=== PATIENT | female | born 1955 | race Two or more races ===

== ENCOUNTER 2023-10-08 08:51 | Emergency (ER) | payer OTHER, MEDICAID ==
[~2023-10-08] VITALS: Ht 162.6 cm; Wt 70.0 kg
[2023-10-08 09:03] VITALS: TEMP 98.2; O2SAT 97
[2023-10-08 10:23] VITALS: BP 166/86; PULSE 81; RESP 16
[2023-10-08] MEDS ORDERED: ACETAMINOPHEN WITH CODEINE 300/30MG TABLET PO STA (10:23)
[2023-10-08] MEDS ORDERED: TETANUS, DIPHTHERIA, PERTUSSIS VAC/PF 0.5ML (>10YR OLD) IM ONE (10:30)
[2023-10-08] MEDS ORDERED: LIDOCAINE HCL 1% 20ML VIAL (Pyxis) INJ INFIL ONE (11:30)
[2023-10-08] MEDS ORDERED: NAPR-681 MT (13:27)
== END 2023-10-08 14:40 | disposition home or self-care (01) ==
LOC: ER 08:51
DX: S01.01XA Laceration without foreign body of scalp, initial encounter (principal); R51.9 Headache, unspecified; E11.9 Type 2 diabetes mellitus without complications; I10 Essential (primary) hypertension; Z88.1 Allergy status to other antibiotic agents; W01.0XXA Fall on same level from slipping, tripping and stumbling without subsequent striking against object, initial encounter; Y93.89 Activity, other specified; Y92.89 Other specified places as the place of occurrence of the external cause; Y99.8 Other external cause status
CPT/HCPCS: 99284; 70450; 71045; 73610; 73630; 72125; 74176; J3490; 90715

== ENCOUNTER 2023-10-15 06:34 | Emergency (ER) | payer OTHER, MEDICAID ==
[~2023-10-15] VITALS: Ht 160 cm; Wt 60.0 kg
[~2023-10-15 06:34] MED LIST: NAPR-681 MT
[2023-10-15 06:45] VITALS: BP 161/92; PULSE 84; RESP 18; TEMP 98.1; O2SAT 98
== END 2023-10-15 07:37 | disposition home or self-care (01) ==
LOC: ER 06:53
DX: Z48.02 Encounter for removal of sutures (principal); Z88.1 Allergy status to other antibiotic agents; E11.9 Type 2 diabetes mellitus without complications; I10 Essential (primary) hypertension
CPT/HCPCS: 99281